=== PATIENT | male | born 1955 | race African-American/Black ===

== ENCOUNTER 2017-03-24 21:00 | Inpatient (IN) | payer OTHER, MEDICAID ==
[~2017-03-24] VITALS: Ht 175.3 cm; Wt 70.3 kg
[2017-03-24] MEDS ORDERED: IPRATROPIUM BROMIDE (0.02%) 0.5MG/2.5ML NEB HHN STA (21:14)
[2017-03-24] MEDS ORDERED: METHYLPREDNISOLONE SOD SUCC 125 MG/2 ML VIAL IV STA (21:14)
[2017-03-24] MEDS ORDERED: ALBUTEROL (0.083%) 2.5MG/3ML NEB HHN STA (21:14)
[2017-03-24] MEDS ORDERED: LEVOFLOXACIN 750MG PREMIX 150 ML IV ONE (21:15)
[2017-03-24] MEDS ORDERED: NITROGLYCERIN OINT 1GM/INCH UDPKT TD ONE (21:15)
[2017-03-24] MEDS ORDERED: ASPIRIN 81MG TABLET PO ONE (21:15)
[2017-03-24] MEDS ORDERED: MAGNESIUM 2 G PREMIX 50 ML IV ONE (21:15)
[2017-03-24 22:13] LABS: CLARITY URINE CLEAR (CLEAR); COLOR URINE YELLOW (YELLOW); KETONES URINE NEGATIVE (NEGATIVE); LEUKOCYTE ESTERASE URINE NEGATIVE (NEGATIVE); NITRITE URINE NEGATIVE (NEGATIVE); OCCULT BLOOD URINE TRACE (NEGATIVE); PROTEIN URINE 1+ (NEGATIVE); SPECIFIC GRAVITY URINE 1.017 (1.005-1.030)
[2017-03-24 22:30] LABS: *AMPHETAMINES SCREEN URINE NEGATIVE (NEGATIVE); *BARBITURATES SCREEN URINE NEGATIVE (NEGATIVE); *BENZODIAZEPINES SCREEN URINE NEGATIVE (NEGATIVE); *COCAINE SCREEN URINE NEGATIVE (NEGATIVE); CANNABINOID URINE SCREEN NEGATIVE (NEGATIVE); METHADONE URINE SCREEN PRESUMTIVE POSITIVE (NEGATIVE); OPIATES URINE SCREEN PRESUMTIVE POSITIVE (NEGATIVE); PHENCYCLIDINE URINE SCREEN NEGATIVE (NEGATIVE)
[2017-03-24 22:49] LABS: BG CARBOXYHEMOGLOBIN 2.4 % (0.5-1.5); BG DEOXYHEMOGLOBIN 12.6 % (0.0-5.0); BG FRACTION INSPIRED OXYGEN 28; BG HCO3 ACT 23.2 mmol/L (22.0-26.0); BG METHEMOGLOBIN 0.2 % (0.0-1.5); BG OXYGEN SATURATION 87.1 % (92.0-98.5); BG OXYHEMOGLOBIN 84.8 % (94.0-97.0); BG PCO2 40.9 mmHg (35.0-45.0); BG PH 7.371 (7.350-7.450); BG PO2 56.8 mmHg (75.0-100.0); BG SAMPLE SITE LEFT BRACHIAL; BG TOTAL HEMOGLOBIN 9.9 g/dL (12.0-18.0); BG VENT MODE NASAL CANNULA
[2017-03-24 22:57] LABS: BASOPHILS % 0.7 % (0.0-2.0); HEMATOCRIT. 27.2 % (42.0-52.0); HEMOGLOBIN. 9.2 g/dL (14.0-18.0); LYMPHOCYTES % 14.9 % (20.0-50.0); MEAN CORPUSCULAR HEMOGLOBIN 28.2 pg (28.0-32.0); MEAN CORPUSCULAR VOLUME 83.4 fL (80.0-94.0); MEAN PLATELET VOLUME 9.2 fl (7.4-10.4); MONOCYTES % 9.8 % (2.0-8.0); NEUTROPHILS % 71.6 % (40.0-76.0); PLATELET 77 x1000/uL (130-400); RED BLOOD CELL COUNT 3.26 mill/uL (4.7-6.1); RED CELL DISTRIBUTION WIDTH 16.5 % (11.6-14.6)
[2017-03-24 23:01] LABS: INR 1.1; PROTHROMBIN TIME 11.8 sec (9.4-11.6)
[2017-03-24 23:11] LABS: CARBON DIOXIDE 27 mEq/L (21-32); CHLORIDE 102 mEq/L (98-107); ETHANOL BLOOD < 10 mg/dL; TROPONIN I 0.04 ng/mL (0.00-0.04)
[2017-03-25] VITALS (8 sets, daily range): BP systolic 158–211; BP diastolic 77–99
[2017-03-25] MEDS ORDERED: CLONIDINE 0.1MG TABLET PO SCH (00:45)
[2017-03-25] MEDS ORDERED: METF500T4 PO (03:03)
[2017-03-25] MEDS ORDERED: LISI40TA4 PO (03:06)
[2017-03-25] MEDS ORDERED: ASPI-1159 PO (03:06)
[2017-03-25] MEDS ORDERED: ATOR20TA PO (03:06)
[2017-03-25] MEDS ORDERED: DOCUSATE SODIUM 100MG CAPSULE PO PRN (11:30)
[2017-03-25] MEDS ORDERED: CEFTRIAXONE 1 G PREMIX 50 ML IV SCH (11:30)
[2017-03-25] MEDS ORDERED: ENOXAPARIN 40MG/0.4ML SYR SUBCUT SCH (11:30)
[2017-03-25] MEDS ORDERED: MAGNESIUM/ALUMINUM HYDROXIDE/SIMETHICONE 30ML UDC PO PRN (11:30)
[2017-03-25] MEDS ORDERED: IPRATROPIUM/ALBUTEROL 0.5-3(2.5)MG/3ML NEB INH PRN (11:30)
[2017-03-25] MEDS ORDERED: MORPHINE SULFATE 2 MG/ML CPJ (NOT FOR IM USE) IV PRN (11:30)
[2017-03-25] MEDS ORDERED: DIPHENHYDRAMINE 50MG/ML VIAL IV PRN (11:30)
[2017-03-25] MEDS ORDERED: HYDROCODONE/ACETAMINOPHEN 5/325MG TABLET PO PRN (11:30)
[2017-03-25] MEDS ORDERED: ACETAMINOPHEN 325MG TABLET PO PRN (11:30)
[2017-03-25] MEDS ORDERED: ACETAMINOPHEN 650MG SUPP PR PRN (11:30)
[2017-03-25] MEDS ORDERED: ONDANSETRON HCL 4MG/2ML VIAL IV PRN (11:30)
[2017-03-25] MEDS ORDERED: ACETAMINOPHEN 650MG/20.3ML UDC GT PRN (11:30)
[2017-03-25] MEDS ORDERED: NA PHOS,M-B/NA PHOS,DI-BA ENEMA 118ML PR PRN (11:30)
[2017-03-25] MEDS ORDERED: DEXTROSE 50% WATER 50ML SYRINGE IV PRN (11:30)
[2017-03-25] MEDS ORDERED: GUAIFENESIN 200MG/10ML SUGAR FREE UDC PO PRN (11:30)
[2017-03-25] MEDS ORDERED: AZITHROMYCIN 500 MG in DEXT 5% WATER 250 ML IV SCH (11:30)
[2017-03-25] MEDS ORDERED: PNEUMOCOCCAL 23-VAL P-SAC VAC 0.5 ML IM ONE (12:00)
[2017-03-25] MEDS: BLOOD SUGAR DIAGNOSTIC STRIP TEST SCH ×3 (12:20→21:08)
[2017-03-25] MEDS ORDERED: ATORVASTATIN CALCIUM 20MG TABLET PO SCH (12:30)
[2017-03-25] MEDS: CLONIDINE 0.1MG TABLET PO PRN (12:48)
[2017-03-25] MEDS: LISINOPRIL 40MG TABLET PO SCH (12:48)
[2017-03-25] MEDS: METFORMIN HCL 500MG TABLET PO SCH (12:48)
[2017-03-25] MEDS: METHYLPREDNISOLONE SOD SUCC 125 MG/2 ML VIAL IV SCH ×3 (14:00→21:10)
[2017-03-25] MEDS: AZITHROMYCIN 500 MG in DEXT 5% WATER 250 ML IV SCH (14:00)
[2017-03-25] MEDS: ASPIRIN 81MG EC TABLET PO SCH (14:14)
[2017-03-25] MEDS: INSULIN LISPRO 100 UNITS/ML SUBCUT SCH ×3 (14:47→21:11)
[2017-03-25] MEDS: CEFTRIAXONE 1 G PREMIX 50 ML IV SCH (14:49)
[2017-03-25] MEDS ORDERED: AZIT500T3 PO (19:36)
[2017-03-25 21:16] LABS: BASOPHILS % 0.4 % (0.0-2.0); EOSINOPHILS % 0.3 % (0.0-5.0); HEMATOCRIT. 30.2 % (42.0-52.0); HEMOGLOBIN. 10.3 g/dL (14.0-18.0); LYMPHOCYTES % 17.5 % (20.0-50.0); MEAN CORPUSCULAR HEMOGLOBIN 28.6 pg (28.0-32.0); MEAN CORPUSCULAR VOLUME 83.8 fL (80.0-94.0); MEAN PLATELET VOLUME 8.9 fl (7.4-10.4); NEUTROPHILS % 70.8 % (40.0-76.0); PLATELET 84 x1000/uL (130-400); RED CELL DISTRIBUTION WIDTH 16.4 % (11.6-14.6)
[2017-03-25 21:37] LABS: CARBON DIOXIDE 29 mEq/L (21-32); CHLORIDE 99 mEq/L (98-107); TROPONIN I 0.02 ng/mL (0.00-0.04)
[2017-03-26 00:09] VITALS: BP 167/83
[2017-03-26] MEDS: IPRATROPIUM/ALBUTEROL 0.5-3(2.5)MG/3ML NEB INH SCH ×3 (00:21→21:39)
[2017-03-26] MEDS: METHYLPREDNISOLONE SOD SUCC 125 MG/2 ML VIAL IV SCH ×4 (02:00→23:50)
[2017-03-26 04:00] VITALS: BP 163/78
[2017-03-26] MEDS: BLOOD SUGAR DIAGNOSTIC STRIP TEST SCH ×4 (06:26→21:25)
[2017-03-26] MEDS: CLONIDINE 0.1MG TABLET PO PRN ×2 (06:26→12:43)
[2017-03-26 06:41] LABS: BASOPHILS % 0.3 % (0.0-2.0); EOSINOPHILS % 1.6 % (0.0-5.0); HEMOGLOBIN. 10.5 g/dL (14.0-18.0); LYMPHOCYTES % 24.2 % (20.0-50.0); MEAN CORPUSCULAR HEMOGLOBIN 28.1 pg (28.0-32.0); MEAN CORPUSCULAR VOLUME 82.7 fL (80.0-94.0); MEAN PLATELET VOLUME 9.8 fl (7.4-10.4); MONOCYTES % 13.9 % (2.0-8.0); PLATELET 74 x1000/uL (130-400); RED BLOOD CELL COUNT 3.75 mill/uL (4.7-6.1); RED CELL DISTRIBUTION WIDTH 16.4 % (11.6-14.6)
[2017-03-26 07:32] LABS: CARBON DIOXIDE 27 mEq/L (21-32); CHLORIDE 101 mEq/L (98-107); HDL CHOLESTEROL 67 mg/dL (40-59); LDL CHOLESTEROL 60 mg/dL (5-100)
[2017-03-26] MEDS: INSULIN LISPRO 100 UNITS/ML SUBCUT SCH ×4 (07:50→21:00)
[2017-03-26] MEDS ORDERED: SODIUM BICARBONATE 4% (2.4MEQ) 5ML VIAL IV ONE (07:59)
[2017-03-26 08:00] VITALS: BP 125/63
[2017-03-26] MEDS: ASPIRIN 81MG EC TABLET PO SCH (09:00)
[2017-03-26] MEDS ORDERED: IOHEXOL-350 100 ML BOTTLE ONE (09:40)
[2017-03-26 10:22] LABS: BG BASE EXCESS 2.7 mmol/L (-2.0-2.0); BG CARBOXYHEMOGLOBIN 0.3 % (0.5-1.5); BG DEOXYHEMOGLOBIN 5.8 % (0.0-5.0); BG FRACTION INSPIRED OXYGEN 21; BG HCO3 ACT 26.6 mmol/L (22.0-26.0); BG METHEMOGLOBIN 0.3 % (0.0-1.5); BG OXYGEN SATURATION 94.2 % (92.0-98.5); BG OXYHEMOGLOBIN 93.6 % (94.0-97.0); BG PCO2 38.4 mmHg (35.0-45.0); BG PH 7.459 (7.350-7.450); BG PO2 73.4 mmHg (75.0-100.0); BG SAMPLE SITE LEFT RADIAL; BG TOTAL HEMOGLOBIN 10.4 g/dL (12.0-18.0); BG VENT MODE ROOM AIR
[2017-03-26] MEDS ORDERED: AMLO10TA4 PO (11:12)
[2017-03-26] MEDS ORDERED: AMLODIPINE 10MG TABLET PO ONE (11:15)
[2017-03-26] MEDS: LISINOPRIL 40MG TABLET PO SCH (11:23)
[2017-03-26] MEDS: METHADONE HCL 10MG TABLET PO SCH (11:23)
[2017-03-26] MEDS: AMLODIPINE 10MG TABLET PO SCH (11:24)
[2017-03-26] MEDS: METFORMIN HCL 500MG TABLET PO SCH ×2 (11:24→19:29)
[2017-03-26 12:00] VITALS: BP 194/93
[2017-03-26] MEDS: CEFTRIAXONE 1 G PREMIX 50 ML IV SCH (15:19)
[2017-03-26] MEDS: AZITHROMYCIN 500 MG in DEXT 5% WATER 250 ML IV SCH (15:20)
[2017-03-26 16:00] VITALS: BP 129/59
[2017-03-26] MEDS ORDERED: CLONIDINE 0.1MG TABLET PO PRN (18:00)
[2017-03-26 20:00] VITALS: BP 165/84
[2017-03-26] MEDS ORDERED: TAMSULOSIN HCL 0.4MG SR CAPSULE PO SCH (21:00)
[2017-03-26] MEDS ORDERED: FAMOTIDINE 20MG TABLET PO SCH (21:00)
[2017-03-26] MEDS ORDERED: ATORVASTATIN CALCIUM 20MG TABLET PO SCH (21:00)
[2017-03-26] MEDS: NICOTINE 21MG PATCH TD SCH (23:50)
[2017-03-27] VITALS: BP 153/73
[2017-03-27] MEDS: IPRATROPIUM/ALBUTEROL 0.5-3(2.5)MG/3ML NEB INH SCH ×3 (03:02→14:51)
[2017-03-27 04:00] VITALS: BP 149/70
[2017-03-27] MEDS: METHYLPREDNISOLONE SOD SUCC 125 MG/2 ML VIAL IV SCH ×2 (06:26→13:53)
[2017-03-27] MEDS: BLOOD SUGAR DIAGNOSTIC STRIP TEST SCH ×2 (06:26→12:20)
[2017-03-27 08:00] VITALS: BP 176/83
[2017-03-27] MEDS: METFORMIN HCL 500MG TABLET PO SCH (08:28)
[2017-03-27] MEDS: AMLODIPINE 10MG TABLET PO SCH (08:29)
[2017-03-27] MEDS: METHADONE HCL 10MG TABLET PO SCH (08:31)
[2017-03-27] MEDS: NICOTINE 21MG PATCH TD SCH (08:34)
[2017-03-27] MEDS: INSULIN LISPRO 100 UNITS/ML SUBCUT SCH ×2 (08:37→14:03)
[2017-03-27] MEDS: LISINOPRIL 40MG TABLET PO SCH (08:59)
[2017-03-27 12:00] VITALS: BP 136/57
[2017-03-27] MEDS: AZITHROMYCIN 500 MG in DEXT 5% WATER 250 ML IV SCH (13:53)
[2017-03-27] MEDS ORDERED: ALBU18HF2 IH (15:28)
[2017-03-27] MEDS ORDERED: FLUT1DIS3 IH (15:30)
[2017-03-27] MEDS: CEFTRIAXONE 1 G PREMIX 50 ML IV SCH (15:30)
[2017-03-27] MEDS ORDERED: P50 PO (15:30)
[2017-03-27 16:00] VITALS: BP 130/59
[2017-03-27 16:58] VITALS: BP 145/75
[2017-03-28] MEDS ORDERED: AZITHROMYCIN 500 MG TABLET PO SCH (09:00)
== END 2017-03-27 19:15 | disposition home or self-care (01) | DRG 720 ==
LOC: ER 23:03 → 6WST 23:07 → EDBEDREQTM 23:09 → EDBEDREQ 23:09 → ENRESERV 23:21 → 6WST 03-25 00:25
PROVIDERS: ADMIT Family Medicine; ATTEND Family Medicine
PROC: 5A09357 Assistance with Respiratory Ventilation, Less than 24 Consecutive Hours, Continuous Positive Airway Pressure (ICD-10-PCS; principal; 2017-03-24)
PROC: B5181ZA Fluoroscopy of Superior Vena Cava using Low Osmolar Contrast, Guidance (ICD-10-PCS; 2017-03-26)
PROC: 02HV33Z Insertion of Infusion Device into Superior Vena Cava, Percutaneous Approach (ICD-10-PCS; 2017-03-26)
PROC: B548ZZA Ultrasonography of Superior Vena Cava, Guidance (ICD-10-PCS; 2017-03-26)
DX: A41.9 Sepsis, unspecified organism (principal); J96.01 Acute respiratory failure with hypoxia; J18.1 Lobar pneumonia, unspecified organism; J44.0 Chronic obstructive pulmonary disease with (acute) lower respiratory infection; E11.9 Type 2 diabetes mellitus without complications; D63.8 Anemia in other chronic diseases classified elsewhere; D69.6 Thrombocytopenia, unspecified; I10 Essential (primary) hypertension; F14.11 Cocaine abuse, in remission; B18.2 Chronic viral hepatitis C; F17.210 Nicotine dependence, cigarettes, uncomplicated; J44.1 Chronic obstructive pulmonary disease with (acute) exacerbation; Z79.899 Other long term (current) drug therapy; Z79.82 Long term (current) use of aspirin
CPT/HCPCS: 36415; 36569; 36600; 71010; 71275; 74176; 76937; 77001; 80053; 80061; 80305; 81001; 82375; 82378; 82805; 82962; 83605; 83880; 84484; 85025; 85379; 85610; 87040; 87086; 87804; 93005; 94640; 94660; 94664; 96365; 96366; 96368; 96375; 97162; 97166; 99291; 99406; C1725; C1893; G0482; J0456; J0696; J1815; J1956; J2930; J3475; J3490; J7040; J7060; J7611; J7620; Q9967

== ENCOUNTER 2018-04-21 01:53 | Emergency (ER) | payer OTHER ==
[~2018-04-21] VITALS: Ht 177.8 cm; Wt 79.5 kg
[~2018-04-21 01:53] MED LIST: ALBU18HF2 IH; AMLO10TA4 PO; ASPI-1159 PO; ATOR20TA PO; AZIT500T3 PO; FLUT1DIS3 IH; LISI40TA4 PO; METF-414 PO; P50 PO
[2018-04-21 01:56] VITALS: BP 185/87
== END 2018-04-21 05:00 | disposition left against medical advice (07) ==
LOC: ER 01:53
DX: R30.9 Painful micturition, unspecified (principal); Z53.21 Procedure and treatment not carried out due to patient leaving prior to being seen by health care provider